=== PATIENT | male | born 1975 | race Hispanic/Latino ===

== ENCOUNTER → 2016-08-14 | Outpatient (CLI) | payer OTHER ==
--- NOTE | 2016-08-14 10:17 | REP ---
CERVICAL SPINE SERIES: Seven views. HISTORY: Neck discomfort. No comparison imaging. FINDINGS: Lateral views done in flexion/extension and neutral position show straightening of the normal cervical lordosis. No subluxation or instability is seen. There is degenerative narrowing and anterior and posterior osteophytic ridging at the C4-5, C5-6 and to a lesser extent, C6-7 disc spaces consistent with degenerative disc disease at these levels. Vertebral body heights are preserved. AP and open mouth odontoid views are unremarkable. Oblique images demonstrate right-sided uncovertebral spurring producing neural foraminal encroachment at C5-6. Neural foramen on the left appear adequate at each level. IMPRESSION: Degenerative spondylosis changes C4-5 through C6-7 as above. Signed by Jay Hudson MD 08/14/2016 10:25 A
== END ==
LOC: M RAD 08:54
PROVIDERS: ATTEND Surgery
DX: M54.2 Cervicalgia (principal)

== ENCOUNTER → 2016-10-20 | Outpatient (CLI) | payer OTHER ==
--- NOTE | 2016-10-20 11:48 | REP ---
MRI BRACHIAL PLEXUS WITHOUT AND WITH CONTRAST: HISTORY: Right brachial plexus injury. A disc bulge is present at the C3-4 level. There is minimal effacement of the thecal sac without spinal cord compression. Uncinate process hypertrophy is present on the left. This produces moderate narrowing of the left C3 neural foramen. The right C3 neural foramen is patent. A disc bulge and small left paracentral disc protrusion are present at the C4-5 level. There is mild effacement of the thecal sac without spinal cord compression. The C4 neural foramina are patent. A disc bulge and small left paracentral disc protrusion are present at the C5-6 level. There is moderate effacement of the thecal sac without spinal cord compression. Uncinate process hypertrophy is present on the right. This produces moderate narrowing of the right C5 neural foramen. The left C5 neural foramen is patent. A disc bulge and small right paracentral disc protrusion are present at the C6-7 level. There is moderate effacement of the thecal sac without spinal cord compression. Bilateral uncinate process hypertrophy is present. This produces moderate and mild narrowing of the right and left C6 neural foramina respectively. There is no supraclavicular or apical lung mass. The region of the brachial plexus is normal in appearance. IMPRESSION: There is cervical spondylosis at the C3-4 through C6-7 levels without spinal cord compression. Signed by Jhonny Zimmer MD 10/20/2016 12:06 P
== END ==
LOC: M RAD 09:17
PROVIDERS: ATTEND Surgery
DX: S14.3XXA Injury of brachial plexus, initial encounter (principal); W18.30XA Fall on same level, unspecified, initial encounter; Y92.009 Unspecified place in unspecified non-institutional (private) residence as the place of occurrence of the external cause

== ENCOUNTER → 2017-08-13 | Outpatient (CLI) | payer OTHER | LOC: M RAD 08:56 | DX: M47.812 Spondylosis without myelopathy or radiculopathy, cervical region (principal) | CPT/HCPCS: 72141 ==